=== PATIENT | female | born 2000 | race Two or more races ===

== ENCOUNTER 2019-02-03 00:10 | Emergency (ER) | payer MEDICAID ==
[~2019-02-03] VITALS: Ht 154.9 cm; Wt 54.4 kg
--- NOTE | 2019-02-03 00:35 | NUR ---
ED Nurse Note: Patient was roller skating and injured ankle 1 hour ago. Pt is AO x 4times, VSS, on room air no distress. ERMD seen Pt at bedside.
[2019-02-03] MEDS ORDERED: HYDROcodone/Acetamin 5/325 tab ORAL ONE (00:45)
[2019-02-03] MEDS ORDERED: IBUPROFEN600 MG ORAL (01:16)
[2019-02-03] MEDS ORDERED: HYDROCODON-ACE1 EA15 ORAL (01:16)
--- NOTE | 2019-02-03 01:17 | Emergency Room Report ---
History of Present Illness General Chief Complaint: Lower Extremity Injury Source: Patient Present Illness HPI This is a 18-year-old female with no past medical history. She presents with chief complaint of right ankle pain. She was rollerskating and she fell. She said that her roller skate was straight and she twisted her leg. This occurred just prior to arrival. Unable to bear weight. Pain is 8 out of 10. Worse with movement. There is some swelling. No knee pain. No hip pain. No nausea no vomiting. No loss of consciousness. No other injury. Allergies: Coded Allergies: No Known Allergies (Unverified , 02/03/19) Patient History Past Medical History: see triage record, old chart reviewed Past Surgical History: none Pertinent Family History: none Social History: Denies: smoking Last Menstrual Period: 01/07/19 Now: No - unk : 0 Para: 0 Immunizations: other Reviewed Nursing Documentation: PMH: Agreed; PSxH: Agreed Nursing Documentation-PMH Past Medical History: No Stated History Review of Systems Eye: Denies: eye pain, blurred vision ENT: Denies: ear pain, nose congestion, throat swelling Respiratory: Denies: cough, shortness of breath Cardiovascular: Denies: chest pain, palpitations Gastrointestinal: Denies: abdominal pain, diarrhea, nausea, vomiting Musculoskeletal: Reports: joint pain, joint swelling; Denies: back pain Skin: Denies: rash Neurological: Denies: headache, numbness Endocrine: Denies: increased thirst, increased urine Hematologic/Lymphatic: Denies: easy bruising All Other Systems: negative except mentioned in HPI Physical Exam Vital Signs Date Time Temp Pulse Resp B/P (MAP) Pulse Ox O2 Delivery O2 Flow Rate FiO2 02/03/19 00:22 101.5 73 17 117/82 (94) 97 Room Air vitals with fever Sp02 EP Interpretation: reviewed, normal General Appearance: well appearing, no apparent distress, alert Head: normocephalic, atraumatic Eyes: bilateral eye PERRL, bilateral eye EOMI ENT: hearing grossly normal, normal pharynx Neck: full range of motion, supple, no meningismus Respiratory: chest non-tender, lungs clear, normal breath sounds Cardiovascular #1: regular rate, rhythm, no murmur Gastrointestinal: normal bowel sounds, non tender, no mass, no organomegaly, no bruit, non-distended Musculoskeletal: back normal, other - Right ankle: There is edema to both lateral and medial malleolus. Both side has tenderness. Pulses normal. Ankle is stable. No knee pain. Neurologic: alert, oriented x3 Psychiatric: mood/affect normal Skin: warm/dry Procedures Splinting Splinting : Consent: Verbal Location: right ankle Hand-Made Type: plaster Splint: sugar-tong Pre-Proc Neuro Vasc Exam: normal Post-Proc Neuro Vasc Exam: normal Patient Tolerated: Well Complications: None Progress Patient was placed in a short leg stirrup splint along with a sugar tong splint. Medical Decision Making Diagnostic Impression: Primary Impression: Bimalleolar ankle fracture Qualified Codes: S82.841A - Displaced bimalleolar fracture of right lower leg , initial encounter for closed fracture ER Course Patient with a bimalleolar fracture. No evidence of dislocation. Mortise is intact. No knee pain. Patient splinted. We'll discharge home with orthopedic follow-up. Other X-Ray Diagnostic Results Other X-Ray Diagnostic Results : X-Ray ordered: Right ankle x-rays # of Views/Limited Vs Complete: 3 View Indication: Pain EP Interpretation: Yes Interpretation: no dislocation, other - STS, bimalleolar frx Impression: Other - bimalleolar frx Electronically Signed by: Dc Rios MD Last Vital Signs Date Time Temp Pulse Resp B/P (MAP) Pulse Ox O2 Delivery O2 Flow Rate FiO2 02/03/19 00:22 101.5 73 17 117/82 (94) 97 Room Air Status: improved Disposition: HOME, SELF-CARE Condition: Stable Scripts Ibuprofen* (MOTRIN*) 600 Mg Tablet 600 MG ORAL THREE TIMES A DAY, #30 TAB 0 Refills Prov: Dc Rios MD 02/03/19 Hydrocodone/Acetaminophen 5-325* (HYDROCODONE/ACETAMINOPHEN 5-325*) 1 Each Tablet 1 TAB ORAL Q6H PRN for For Pain, #30 TAB 0 Refills Prov: Dc Rios MD 02/03/19 Additional Instructions: Elevate leg. No weightbearing. Ice pack to the area. Follow-up with your doctor within a week. You will need a referral to see orthopedic doctor. Return if worse. Dc Rios MD February 03, 2019 01:17
[2019-02-03 02:20] VITALS: BP 109/79
--- NOTE | 2019-02-03 02:21 | NUR ---
ER DISCHARGE NOTE: Patient is cleared to be discharged per ERMD, pt is aox4, on room air, with stable vital signs. pt was given dc and prescription instructions, pt was able to verbalize understanding, pt id band removed without complications. pt is able to ambulate with steady gait. pt took all belongings. Splint was applied. Family carried Pt home.
--- NOTE | 2019-02-03 02:30 | Diagnostic Imaging Report ---
EXAM: XR Right Ankle Complete, 3 Views CLINICAL HISTORY: Trauma. TECHNIQUE: Frontal, lateral and oblique views of the right ankle. COMPARISON: No relevant prior studies available. FINDINGS: Bones/joints: Spiral fracture of right distal fibula and mildly displaced fracture of medial malleolus. Mild widening of anterior tibiotalar joint without dislocation. Talar dome appears intact. No additional fractures visualized. Soft tissues: Soft tissue swelling of the right lower leg and ankle. IMPRESSION: 1. Spiral fracture of right distal fibula and mildly displaced fracture of medial malleolus. 2. Mild widening of anterior tibiotalar joint without dislocation. 3. Soft tissue swelling of the right lower leg and ankle.
== END 2019-02-03 02:23 | disposition home or self-care (01) ==
LOC: EMR 00:52
DX: S82.841A Displaced bimalleolar fracture of right lower leg, initial encounter for closed fracture (principal); W19.XXXA Unspecified fall, initial encounter; Y93.51 Activity, roller skating (inline) and skateboarding; Y92.9 Unspecified place or not applicable
CPT/HCPCS: 29515; 99283

== ENCOUNTER 2019-02-12 17:40 | Emergency (ER) | payer MEDICAID ==
[~2019-02-12] VITALS: Ht 162.6 cm; Wt 59.0 kg
[~2019-02-12 17:40] MED LIST: HYDROCODON-ACE1 EA15 ORAL; IBUPROFEN600 MG ORAL
--- NOTE | 2019-02-12 17:57 | NUR ---
ED Nurse Note: PT WALKED IN TO ER TODAY FROM HOME. AOX4. PT WAS SEEN 02/03/19 FOR BIMALLEOLAR FRACTURE OF RIGHT LOWER EXTREMITY. PT WAS PLACED IN A SHORT LEG STIRRUP SPLINT ALONG WITH A SUGAR TONG SPLINT AND TOLD TO FOLLOW UP WITH ORTHOPEDICS. PT RETURNS TODAY BECAUSE SHE WAS UNABLE TO MAKE AN APPT WITH ORTHO. PT ALSO STATES SHE HAD A FALL EARLIER TODAY AND C/O 5/10 LEG PAIN. CIRCULATION AND SENSATION INTACT, CAP REFILL <3 SECONDS AND FULL ROM OF DIGITS.
--- NOTE | 2019-02-12 18:09 | Emergency Room Report ---
History of Present Illness General Chief Complaint: Lower Extremity Injury Source: Patient Present Illness HPI 18-year-old female with history of right ankle fracture here for follow-up regarding her fracture that occurred 10 days ago. Patient was and unable to contact any of the rare/endangered species specialist that we gave a phone number to rating the pain 7 out of 10 without radiation to minimal bruising denying tingling and numbness has been taking her medication as directed has not established a primary care physician yet as she was in a different city and reports that she goes to school and she was under the impression that she has to stay in [place] to be seen by rare/endangered species specialist denies any other injury has been elevating her leg and been using crutches. Denies chest pain, shortness of breath, palpitation, and all other associated symptoms Allergies: Coded Allergies: No Known Allergies (Unverified , 02/03/19) Patient History Past Medical History: see triage record Past Surgical History: unable to obtain Pertinent Family History: none Last Menstrual Period: 01/12/19 Now: No Immunizations: UTD Reviewed Nursing Documentation: PMH: Agreed; PSxH: Agreed Nursing Documentation-PMH Past Medical History: No Stated History Review of Systems All Other Systems: negative except mentioned in HPI Physical Exam Vital Signs Date Time Temp Pulse Resp B/P (MAP) Pulse Ox O2 Delivery O2 Flow Rate FiO2 02/12/19 17:44 98.4 72 16 106/68 (81) 99 Room Air Sp02 EP Interpretation: reviewed, normal General Appearance: normal inspection, well appearing Head: normocephalic, atraumatic Eyes: bilateral eye normal inspection, bilateral eye PERRL ENT: normal ENT inspection, normal pharynx Neck: normal inspection, full range of motion, supple Respiratory: normal inspection, chest non-tender, lungs clear, no wheezing Cardiovascular #1: normal inspection, regular rate, rhythm, no edema, no murmur , normal capillary refill Cardiovascular #2: 2+ dorsalis pedis (R), 2+ dorsalis pedis (L) Gastrointestinal: normal inspection, soft Rectal: deferred Genitourinary: no CVA tenderness Musculoskeletal: back normal, other - Right ankle is in a short leg splint with minimal bruising patient is able to move toes and has full sensation Neurologic: normal inspection, alert, oriented x3, responsive Psychiatric: normal inspection, judgement/insight normal Skin: normal inspection, normal color, no rash Lymphatic: normal inspection, no adenopathy Medical Decision Making PA Attestation All my diagnosis and treatment plans were reviewed ad discussed with my supervising physician Dr. Wheatley Diagnostic Impression: Primary Impression: Stress fracture, right ankle, sequela ER Course 18-year-old female with history of right ankle fracture here for follow-up regarding her fracture that occurred 10 days ago. Patient was and unable to contact any of the rare/endangered species specialist that we gave a phone number to rating the pain 7 out of 10 without radiation to minimal bruising denying tingling and numbness has been taking her medication as directed has not established a primary care physician yet as she was in a different city and reports that she goes to school and she was under the impression that she has to stay in [place] to be seen by rare/endangered species specialist denies any other injury has been elevating her leg and been using crutches. Denies chest pain, shortness of breath, palpitation, and all other associated symptoms Ddx considered but are not limited to: ankle sprain, ankle strain, ankle fracture, ankle contusion Vital signs: are WNL, pt. is afebrile H&PE are most consistent with: Ankle fracture sequelae ORDERS: Ibuprofen ED INTERVENTIONS: None required at this time. DISCHARGE: At this time pt. is stable for d/c to home. Will provide printed patient care instructions, and any necessary prescriptions. Care plan and follow up instructions have been discussed with the patient prior to discharge. I gave patient a list of different clinics to go and to be referred to orthopedics also I told her that she can go to her school and to be seen by the primary care provider for referral to rare/endangered species specialist at this point number for imaging is needed as this is a second encounter post fracture has been 10 days most likely the fracture has healed however I advised her to keep the splint on and start using a right ankle immobilizer that she can purchase from any medical supply store Last Vital Signs Date Time Temp Pulse Resp B/P (MAP) Pulse Ox O2 Delivery O2 Flow Rate FiO2 02/12/19 17:44 98.4 72 16 106/68 (81) 99 Room Air Disposition: HOME, SELF-CARE Condition: Stable Scripts Ibuprofen* (MOTRIN*) 600 Mg Tablet 600 MG ORAL Q6H PRN for For Pain, #30 TAB 0 Refills Prov: Henry Michaels 02/12/19 Patient Instructions: Ankle Fracture, [id number] Additional Instructions: Follow-up with Ortho keep leg elevated wear therapeutic ankle immobilizer Henry Michaels Feb 12, 2019 18:09
[2019-02-12] MEDS ORDERED: IBUPROFEN600 MG ORAL (18:11)
--- NOTE | 2019-02-12 18:12 | NUR ---
ED Nurse Note: PT SITTING PEACEFULLY IN CHAIR IN NAD. AOX4. PRESCRIPTION AND DISCHARGE PAPERWORK EXPLAINED TO PT. PT VERBALIZES UNDERSTANDING AND ALL QUESTIONS ANSWERED. PRESCRIPTION AND DISCHARGE PAPERWORK GIVEN TO PT AND ID WRISTBAND REMOVED. PT WALKED OUT OF ER WITH STEADY GAIT WITH PROPER USE OF ASSISTIVE DEVICE AND ALL BELONGINGS.
[2019-02-12 18:13] VITALS: BP 112/74
== END 2019-02-12 18:15 | disposition home or self-care (01) ==
LOC: EMR 18:10
DX: S82.891S Other fracture of right lower leg, sequela (principal); X58.XXXS Exposure to other specified factors, sequela
CPT/HCPCS: 99282